=== PATIENT | female | born 1940 | race Caucasian/White ===

== ENCOUNTER → 2023-11-29 14:14 | Outpatient (REF) | payer OTHER, SELFPAY | LOC: RAD 14:14 | PROVIDERS: ATTENDING PHYSICIAN Registered Nurse Ambulatory Care | DX: N39.45 Continuous leakage (principal) | CPT/HCPCS: 76770 ==

== ENCOUNTER 2023-12-15 19:59 | Emergency (ER) | payer OTHER, SELFPAY ==
[2023-12-15 20:08] VITALS: BP 120/60
--- NOTE | 2023-12-15 22:30 | EDRN ---
This RN switched pts leg bag to the leg bag that carries, pt feels much more comfortable with this bag and demonstrated understanding of use. Pt given overnight 2,000ml bag for overnight if she needs. Pts daughter at bedside and understands fernandez
care as well. All questions answered. Pt appreciative for the education provided.
--- NOTE | 2023-12-15 22:51 | ED.GENMED ---
History of Present Illness
General
Chief Complaint: Catheter/Tube Problem
Source: patient and family
Exam Limitations: none
Time Seen by Provider: 12/15/23 22:08
Nursing documentation reviewed up to this point in time: agreed with
Travel History
Have you had any contact with someone who has COVID-19?: No
Do you have any symptoms of coronavirus? Fever > 100 degrees, chills, cough, shortness of breath, sore throat, loss of taste or smell, muscle aches, or headache?: No
History of Present Illness
History of Present Illness:
Patient states he had a fernandez catheter placed yesterday by urologist Ammon. Today her leg bag was leaking, Brought to ED by daughter for eval.
Past History
Past History
ED Past Medical History: Arrthythmia (Atrial fibrillation), Hypercholesterolemia, Seizures, Hypothyroidism, Psychiatric (Anxiety and depression), Other (Rheumatoid arthritis, Plaque psoriasis, osteoporosis, primary biliary cirrhosis diagnosed by
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
Leiden, restless leg syndrome)
ED Past Surgical History: Appendectomy, Brain (Craniotomy), Cholecystectomy, Gynecological (Oophorectomy), Orthopedic and Other (right eye laser surgery, cataract extraction 1999)
Social History
Tobacco: Non-smoker
Alcohol: None
Drug: None
Personal: Single
Living: alone
Employment: Retired
Family History
Family History: Other (Reviewed and Noncontributory)
Review of Systems
Review of Systems
Allergies reviewed?: Yes
All Other Systems: ROS reviewed and negative except as documented in HPI and ROS
Constitutional: Reports no symptoms
EENT: Reports no symptoms
Respiratory: Reports no symptoms
Cardiac: Reports no symptoms
ABD/GI: Reports no symptoms
: Reports other (leaking leg bag)
Musculoskeletal: Reports no symptoms
Skin: Reports no symptoms
Neurological: Reports no symptoms
Psychiatric: Reports no symptoms
Phy Exam
General Physical Exam
General Presentation: well appearing and no apparent distress
General age: appears stated age
General Skin: warm and dry
General Habitus: normal
Gastrointestinal Exam
Gastrointestinal Exam: other (Fernandez catheter intact. Leg bag changed and she was instructed in care by RN. No defect noted on original leg bag. )
Musculoskeletal Exam
Musculoskeletal Exam: full ROM
Skin Exam
Skin Exam: normal color, warm/dry and no rash
Psychiatric Exam
Psychiatric Exam: normal mood/affect
Course
Vital Signs
Initial and Last Documented VS:
Initial Vital Signs
Temp Pulse Resp BP Pulse Ox
98.0 F 88 17 120/60 98
12/15/23 20:08 12/15/23 20:08 12/15/23 20:08 12/15/23 20:08 12/15/23 20:08
Last Documented Vital Signs
Temp Pulse Resp BP Pulse Ox
98.0 F 88 17 120/60 98
12/15/23 20:08 12/15/23 20:08 12/15/23 20:08 12/15/23 20:08 12/15/23 20:08
*Critical Care Note
Total Time (30-74mins, 75-104mins- exclusive of procedures): Not Applicable
ED Attending Note
-
Portions of this chart may have been created with voice recognition software.� Occasional wrong word or��sound alike� substitutions may have occurred due to the inherent limitations of voice recognition software.
Discharge Plan
Departure
Patient Disposition: Home (Routine Discharge)
Date of Disposition: 12/15/23
Time of Disposition: 22:50
Patient with high blood pressure during this ER visit?: No
Condition: Good
Covid-19: Not Applicable
Discharge Problem:
Complication of Fernandez catheter
Instructions: How to Care for Your Fernandez Catheter
Prescriptions:
No Action
divalproex 500 MG tablet,delayed release (DR/EC)
500 mg PO BID
ursodiol 300 MG capsule
600 mg PO DAILY
levothyroxine 25 MCG tablet
25 mcg PO DAILY@0700
ursodiol 300 MG capsule
300 mg PO QPM
Centrum Silver 1 EACH tablet
1 ea PO DAILY
Lumigan 1 DROP drops
1 drp BOTH EYES HS
polyethylene glycol 3350 17 GRAMS powder in packet
17 grams PO DAILYPRN PRN (Reason: constipation)
metoprolol succinate 50 MG tablet extended release 24 hr
50 mg PO HS
lacosamide [Vimpat] 100 MG tablet
200 mg PO BID
Eliquis 5 MG tablet
5 mg PO BID Qty: 0 0RF
Rx Instructions:
RESUME WEDNESDAY 08/15
torsemide 10 mg Tablet
10 mg PO DAILY
docusate sodium 100 MG capsule
100 mg PO DAILY
gabapentin 300 MG capsule
300 mg PO HS
Enbrel 50 MG/ML syringe
50 mg SQ GASCA
Referrals:
Sherrie Chiu NP [Family Provider] - Follow up in 2-3 days
Interventions
Interventions:
*Risk Screen - Suicide Last Done: 12/15/23 20:08
*General Assessment Last Done: 12/15/23 20:08
*Neglect/Abuse Screening Last Done: 12/15/23 20:08
ED- Fall Risk Assessment Last Done: 12/15/23 22:25
*ED COVID-19 Vaccine History Last Done: 12/15/23 20:08
FS-Vwxiwq-Genctqisiz Assessment Last Done: 12/15/23 22:25
ED-Female Genitourinary Assessment Last Done: 12/15/23 22:25
[2023-12-15 23:00] VITALS: BP 118/75
== END 2023-12-15 23:08 | disposition home or self-care (01) ==
LOC: EMR 19:59
PROVIDERS: EMERGENCY PHYSICIAN Emergency Medicine; FAMILY PHYSICIAN Internal Medicine
DX: T83.9XXA Unspecified complication of genitourinary prosthetic device, implant and graft, initial encounter (principal); Z46.6 Encounter for fitting and adjustment of urinary device; I48.91 Unspecified atrial fibrillation; E78.00 Pure hypercholesterolemia, unspecified; G40.909 Epilepsy, unspecified, not intractable, without status epilepticus; E03.9 Hypothyroidism, unspecified; F41.8 Other specified anxiety disorders; M06.9 Rheumatoid arthritis, unspecified; L40.0 Psoriasis vulgaris; K74.3 Primary biliary cirrhosis; K58.9 Irritable bowel syndrome, unspecified; D68.51 Activated protein C resistance; G25.81 Restless legs syndrome; H40.9 Unspecified glaucoma; M81.0 Age-related osteoporosis without current pathological fracture; Z86.16 Personal history of COVID-19; Z90.49 Acquired absence of other specified parts of digestive tract; Z90.721 Acquired absence of ovaries, unilateral
CPT/HCPCS: 99282

== ENCOUNTER → 2023-12-21 11:17 | Outpatient (REF) | payer OTHER, SELFPAY ==
--- NOTE | 2023-12-21 13:29 | EEG.RPT ---
Electroencephalogram Report
Recording
Date of EE12/21/23
Type of EEG: Routine
Length of EEG recordin minutes
Done with Video Recording: Yes
Patient Status: Outpatient
Recording Conditions: Awake and Drowsy
Hyperventilation Performed: No
Photic Stimulation Performed: Yes
Report
GREATER THAN 1 HOUR EEG REPORT
GREATER THAN 1 HOUR EEG INTERPRETATION:
Mildly abnormal EEG for age in wakefulness through sleep due to mild diffuse bihemispheric slowing
CLINICAL CORRELATION:
This study was suggestive of mild breach artifact from the right temporal lobe in non-epileptiform form. Although normative values have not been established for a person of this advanced age, this study was minimally suggestive of diffuse cortical
dysfunction. No seizures were recorded.
Clinical correlation is advised.
METHODS:
A 21 channel digitized electroencephalogram (EEG) was performed at the bedside. The 10/20 international system of electrode placement was used with ECG and lateral/vertical eye movements recorded. Video was recorded. [employer] system quantitative EEG
analysis was performed.
QUALITY OF STUDY:
Fair-Poor; frequent obscuration with muscle artifact
ELECTROENCEPHALOGRAPHER IMPRESSION(S):
Background
Amplitude: Unremarkable
Anterior-Posterior Organization: Unremarkable
Maximum: Alpha
Asymmetry: None
Sleep
Drowsiness present
Photic Stimulation
Failed to activate the record
ECG
Normal sinus rhythm
Abnormal EEG Activity
Mild asymmetry with right temporal (T4) focal medium-high amplitude continuously
== END ==
LOC: RCS 11:17
PROVIDERS: ATTENDING PHYSICIAN Psychiatry & Neurology Neurology; FAMILY PHYSICIAN Internal Medicine
DX: G40.209 Localization-related (focal) (partial) symptomatic epilepsy and epileptic syndromes with complex partial seizures, not intractable, without status epilepticus (principal)
CPT/HCPCS: 95813

== ENCOUNTER 2023-12-23 15:30 | Emergency (ER) | payer OTHER, SELFPAY ==
[2023-12-23 15:33] VITALS: BP 142/72
--- NOTE | 2023-12-23 16:24 | ED.GENMED ---
History of Present Illness
General
Chief Complaint: Cough
Source: patient
Exam Limitations: none
Time Seen by Provider: 12/23/23 15:57
Nursing documentation reviewed up to this point in time: agreed with
Travel History
Have you had any contact with someone who has COVID-19?: Yes
Comment: patient + today
Do you have any symptoms of coronavirus? Fever > 100 degrees, chills, cough, shortness of breath, sore throat, loss of taste or smell, muscle aches, or headache?: Yes
Symptoms:: cough
History of Present Illness
History of Present Illness:
Patient is an 83-year-old female from assisted living presents with a cough for the past several days. She was tested at facility and was found to be COVID-positive. Her only complaint is cough. She denies any fevers denies any shortness of
breath. no other complaints.
Past History
Past History
ED Past Medical History: Arrthythmia (Atrial fibrillation), Hypercholesterolemia, Seizures, Hypothyroidism, Psychiatric (Anxiety and depression), Other (Rheumatoid arthritis, Plaque psoriasis, osteoporosis, primary biliary cirrhosis diagnosed by
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
Leiden, restless leg syndrome)
ED Past Surgical History: Appendectomy, Brain (Craniotomy), Cholecystectomy, Gynecological (Oophorectomy), Orthopedic and Other (right eye laser surgery, cataract extraction 1999)
Social History
Tobacco: Non-smoker
Alcohol: None
Drug: None
Personal: Single
Living: alone
Employment: Retired
Family History
Family History: Other (Reviewed and Noncontributory)
Review of Systems
Review of Systems
Allergies reviewed?: Yes
All Other Systems: ROS reviewed and negative except as documented in HPI and ROS
Constitutional: Denies fever, fatigue or chills
EENT: Reports no symptoms
Respiratory: Reports cough; Denies trouble breathing
ABD/GI: Reports no symptoms
: Reports no symptoms
Musculoskeletal: Reports no symptoms
Skin: Reports no symptoms
Neurological: Reports no symptoms
Psychiatric: Reports no symptoms
Phy Exam
General Physical Exam
General Presentation: no apparent distress
General age: appears stated age
General Skin: warm and dry
General Habitus: normal
General Mental: alert
General Hydration: appears well hydrated
Cardiovascular Exam
Cardiovascular Exam: regular rate/rhythm, no murmur and normal peripheral pulses
Pulmonary Exam
Pulmonary Exam: lungs clear and no respiratory distress
Neurological Exam
Neurological Exam: alert and oriented x3
Musculoskeletal Exam
Musculoskeletal Exam: full ROM
Skin Exam
Skin Exam: normal color and warm/dry
Psychiatric Exam
Psychiatric Exam: normal mood/affect
Course
Orders/Labs/Results
Orders:
Orders
12/23/23 16:31
Vital Signs- Treatment ONCE
Frequency: Once
12/23/23 17:45
Benzonatate [Tessalon Perles] 200 mg PO NOW STA
Vital Signs
Initial and Last Documented VS:
Initial Vital Signs
Temp Pulse Resp BP Pulse Ox
98.7 F 110 18 142/72 96
12/23/23 15:33 12/23/23 15:33 12/23/23 15:33 12/23/23 15:33 12/23/23 15:33
Last Documented Vital Signs
Temp Pulse Resp BP Pulse Ox
98.7 F 116 18 121/76 97
12/23/23 15:33 12/23/23 17:54 12/23/23 16:47 12/23/23 17:54 12/23/23 17:54
MDM/Problems Addressed
Differential Diagnosis Includes:
Not limited to viral syndrome/COVID
MDM/Problems Addressed:
Patient was found to be COVID-positive tested at skilled facility prior to arrival. Only complaint is cough, She is in no acute distress she is not hypoxic lungs are clear. She is well-appearing she has no other complaints other then cough. will
d/c with benzonate.
*Critical Care Note
Total Time (30-74mins, 75-104mins- exclusive of procedures): Not Applicable
ED Attending Note
-
Portions of this chart may have been created with voice recognition software.� Occasional wrong word or��sound alike� substitutions may have occurred due to the inherent limitations of voice recognition software.
Discharge Plan
Departure
Patient Disposition: Home (Routine Discharge)
Date of Disposition: 12/23/23
Time of Disposition: 17:34
Patient with high blood pressure during this ER visit?: No
Condition: Fair
Covid-19: Confirmed COVID-19
Discharge Problem:
COVID-19
Instructions: Cough, Adult (DC), COVID-19 (DC)
Prescriptions:
New
benzonatate 200 mg capsule
200 mg PO TID PRN (Reason: Cough) Qty: 10 0RF
No Action
divalproex 500 MG tablet,delayed release (DR/EC)
500 mg PO BID
ursodiol 300 MG capsule
600 mg PO DAILY
levothyroxine 25 MCG tablet
25 mcg PO DAILY@0700
ursodiol 300 MG capsule
300 mg PO QPM
Centrum Silver 1 EACH tablet
1 ea PO DAILY
Lumigan 1 DROP drops
1 drp BOTH EYES HS
polyethylene glycol 3350 17 GRAMS powder in packet
17 grams PO DAILYPRN PRN (Reason: constipation)
metoprolol succinate 50 MG tablet extended release 24 hr
50 mg PO HS
lacosamide [Vimpat] 100 MG tablet
200 mg PO BID
Eliquis 5 MG tablet
5 mg PO BID Qty: 0 0RF
Rx Instructions:
RESUME WEDNESDAY 08/15
torsemide 10 mg Tablet
10 mg PO DAILY
docusate sodium 100 MG capsule
100 mg PO DAILY
gabapentin 300 MG capsule
300 mg PO HS
Enbrel 50 MG/ML syringe
50 mg SQ GASCA
Referrals:
NONE,* [Active] -
Activity Restrictions/Additional Instructions:
Patient may take benzoate for cough. Stay well-hydrated. Patient looks well no complaints of shortness of breath here in the ER ,patient must be evaluated by family doctor in the next several days.
return if any worsening of symptoms
Interventions
Interventions:
*Risk Screen - Suicide Last Done: 12/23/23 15:35
*Neglect/Abuse Screening Last Done: 12/23/23 15:35
ED- Fall Risk Assessment Last Done: 12/23/23 16:48
*ED COVID-19 Vaccine History Last Done: 12/23/23 15:35
*Nursing Disposition Last Done: 12/23/23 18:44
ED- Pulmonary Assessment Last Done: 12/23/23 16:48
Discharge Date and Time
Discharge Date/Time: 12/23/23 18:45
[2023-12-23] MEDS: TESSALON PERLES 200 MG PO (17:48)
[2023-12-23 17:54] VITALS: BP 121/76
== END 2023-12-23 18:45 | disposition home or self-care (01) ==
LOC: EMR 15:30
PROVIDERS: EMERGENCY PHYSICIAN Emergency Medicine; FAMILY PHYSICIAN Internal Medicine
DX: U07.1 COVID-19 (principal); I48.91 Unspecified atrial fibrillation; E78.00 Pure hypercholesterolemia, unspecified; E03.9 Hypothyroidism, unspecified; M06.9 Rheumatoid arthritis, unspecified; F41.9 Anxiety disorder, unspecified; F32.A Depression, unspecified; M81.0 Age-related osteoporosis without current pathological fracture; Q07.00 Arnold-Chiari syndrome without spina bifida or hydrocephalus; H40.9 Unspecified glaucoma; M48.00 Spinal stenosis, site unspecified; R56.9 Unspecified convulsions; I50.9 Heart failure, unspecified; K74.60 Unspecified cirrhosis of liver; K58.9 Irritable bowel syndrome, unspecified; D68.51 Activated protein C resistance; G25.81 Restless legs syndrome; Z79.01 Long term (current) use of anticoagulants; Z90.49 Acquired absence of other specified parts of digestive tract; Z88.5 Allergy status to narcotic agent; Z88.8 Allergy status to other drugs, medicaments and biological substances
CPT/HCPCS: 99283

== ENCOUNTER 2024-06-04 20:42 | Emergency (ER) | payer OTHER, SELFPAY ==
[2024-06-04 20:45] VITALS: BP 126/62
--- NOTE | 2024-06-04 22:08 | ED.GENMED ---
History of Present Illness
<DWIGHT Cole (Lenka) - Last Filed: 06/04/24 22:35>
General
Chief Complaint: Catheter/Tube Problem
Source: patient
Exam Limitations: none
Time Seen by Provider: 06/04/24 22:07
Nursing documentation reviewed up to this point in time: agreed with
History of Present Illness
History of Present Illness:
Pt is an 83yo female with PMHx of urinary stress incontinence s/p fernandez catheter placed in 2022, primary biliary cirrhosis, IBS, hypothyroid, CHF, hypotension, CVA, seizures who presents to the ED with concerns over her chronic fernandez catheter
leaking x 3 hours. Pt states she was at the urology clinic earlier today for her monthly catheter exchange. She is unsure catheter size, unsure if there has been a recent change in catheter size. She denies any complications during exchange today.
During dinner she noted her left leg with the fernandez bag was wet, and believed she was leaking urine. Unsure how much time elapsed between exchange and notice of leakage. Her catheter was placed around 1 year ago (2022) for chronic stress
incontinence and she has had monthly changes without complication since. She denies burning or pain,redness, or pruritus in the genital region. Denies fevers, chills, abdominal pain, changes to bowel habits, N/V.
Past History
<DWIGHT Cole (Lenka) - Last Filed: 06/04/24 22:35>
Past History
ED Past Medical History: Arrthythmia (Atrial fibrillation), Hypercholesterolemia, Seizures, Hypothyroidism, Psychiatric (Anxiety and depression), Other (Rheumatoid arthritis, Plaque psoriasis, osteoporosis, primary biliary cirrhosis diagnosed by
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
Leiden, restless leg syndrome)
ED Past Surgical History: Appendectomy, Brain (Craniotomy), Cholecystectomy, Gynecological (Oophorectomy), Orthopedic and Other (right eye laser surgery, cataract extraction 1999)
Social History
Tobacco: Non-smoker
Alcohol: None
Drug: None
Personal: Single
Living: assisted living
Employment: Retired
Family History
Family History: Other (Reviewed and Noncontributory)
Phy Exam
<DWIGHT Cole (Lenka) - Last Filed: 06/04/24 22:35>
General Physical Exam
General Presentation: mild distress
General age: appears stated age
General Skin: warm and dry
General Habitus: elderly
General Mental: anxious
Pulmonary Exam
Pulmonary Exam: no respiratory distress
Gastrointestinal Exam
Gastrointestinal Exam: non tender, soft and non distended
Genitourinary Exam Female
Exam Female: other (NO lesions, redness, signs of irritation, swelling, displacement of catheter, or leakage of urine visualized. Pt with pull-ups, pad, and paper towel as barrier around fernandez, all are dry upon inspection despite being changed
1.5 hours ago)
Neurological Exam
Neurological Exam: alert and speech normal
Skin Exam
Skin Exam: normal color and warm/dry
Psychiatric Exam
Psychiatric Exam: agitated and anxious
Course
<DWIGHT Cole (Lenka) - Last Filed: 06/04/24 22:35>
Vital Signs
Initial and Last Documented VS:
Initial Vital Signs
Temp Pulse Resp BP Pulse Ox
98 F 98 22 126/62 98
06/04/24 20:45 06/04/24 20:45 06/04/24 20:45 06/04/24 20:45 06/04/24 20:45
Last Documented Vital Signs
Temp Pulse Resp BP Pulse Ox
98 F 98 22 126/62 98
06/04/24 20:45 06/04/24 20:45 06/04/24 20:45 06/04/24 20:45 06/04/24 20:45
<Marco Castillo DO - Last Filed: 06/04/24 23:01>
Vital Signs
Initial and Last Documented VS:
Initial Vital Signs
Temp Pulse Resp BP Pulse Ox
98 F 98 22 126/62 98
06/04/24 20:45 06/04/24 20:45 06/04/24 20:45 06/04/24 20:45 06/04/24 20:45
Last Documented Vital Signs
Temp Pulse Resp BP Pulse Ox
98 F 98 22 126/62 98
06/04/24 20:45 06/04/24 20:45 06/04/24 20:45 06/04/24 20:45 06/04/24 20:45
<DWIGHT Cole (Lenka) - Last Filed: 06/04/24 22:35>
MDM/Problems Addressed
Differential Diagnosis Includes:
83yo female with concerns over fernandez catheter leaking after exchange today. Catheter was exchanged earlier today per routine protocol, pt denies complications during exchange. No irritation or concerns when leaving the office. This evening she
noticed wetness on her leg and believed her catheter was leaking. She presents 1.5 hours after padding her pull-ups with pads and paper towels, all of which were completely dry. Upon physical exam, no evidence of urine leakage or catheter
displacement was visualized.
No indication to exchange catheter. Plan to discharge patient with current catheter in place.
<DWIGHT Cole (Lenka) - Last Filed: 06/04/24 22:35>
*Critical Care Note
Total Time (30-74mins, 75-104mins- exclusive of procedures): Not Applicable
ED Attending Note
<DWIGHT Cole (Lenka) - Last Filed: 06/04/24 22:35>
-
Portions of this chart may have been created with voice recognition software.� Occasional wrong word or��sound alike� substitutions may have occurred due to the inherent limitations of voice recognition software.
<Marco Castillo, DO - Last Filed: 06/04/24 23:01>
ED Attending Note
Patient seen and examined by attending physician: Yes
I performed the substantive portion of visit, reviewed & personally made and approve the management plan that is documented in note by myself or GRACE.: Yes
ED Attending Note:
Pleasant 83-year-old female presents with the possibility of Fernandez catheter leaking. For the last 3 hours she states that she felt wetness around her Fernandez catheter. She was at urology clinic earlier today and had her catheter changed routinely.
Upon arrival, nursing inspected the entire catheter and could not find any evidence of a leak. It is flowing normally. She was observed in the emergency department and still no leak. Patient was seen in conjunction with the PA student. I have
reviewed and agree with her history and treatment plan. On my physical exam Fernandez catheter is in place draining normal colored urine. There is no evidence of leak. Patient to be discharged home
Discharge Plan
Departure
Patient Disposition: Home (Routine Discharge)
Date of Disposition: 06/04/24
Time of Disposition: 23:00
Patient with high blood pressure during this ER visit?: Yes
Condition: Good
Discharge Problem:
Fernandez catheter check, Fernandez catheter present
Prescriptions:
No Action
divalproex 500 MG tablet,delayed release (DR/EC)
500 mg PO BID
ursodiol 300 MG capsule
600 mg PO DAILY
levothyroxine 25 MCG tablet
25 mcg PO DAILY@0700
ursodiol 300 MG capsule
300 mg PO QPM
Centrum Silver 1 EACH tablet
1 ea PO DAILY
Lumigan 1 DROP drops
1 drp BOTH EYES HS
polyethylene glycol 3350 17 GRAMS powder in packet
17 grams PO DAILYPRN PRN (Reason: constipation)
metoprolol succinate 50 MG tablet extended release 24 hr
50 mg PO HS
lacosamide [Vimpat] 100 MG tablet
200 mg PO BID
Eliquis 5 MG tablet
5 mg PO BID Qty: 0 0RF
Rx Instructions:
RESUME WEDNESDAY 08/15
torsemide 10 mg Tablet
10 mg PO DAILY
docusate sodium 100 MG capsule
100 mg PO DAILY
gabapentin 300 MG capsule
300 mg PO HS
Enbrel 50 MG/ML syringe
50 mg SQ GASCA
benzonatate 200 mg capsule
200 mg PO TID PRN (Reason: Cough) Qty: 10 0RF
Referrals:
Sherrie Chiu NP [Family Provider] -
Activity Restrictions/Additional Instructions:
It was a pleasure meeting you and taking part in your care. We hope for your continued healing and wellness.
Please read discharge instructions in their entirety. However, they are for general education and may not describe your exact diagnosis at discharge. Information on your ER visit and medical conditions were discussed with you along with appropriate
follow up information...
If indicated, please take your medications as instructed and indicated on discharge paperwork.
Please schedule a follow up appointment as directed. Call to schedule an appointment
Please return to the emergency department with ANY change in, persisting, or worsening of symptoms. If any of your symptoms do not improve, or persist, or become more severe within 6-12 hours, please return to the emergency department for further
care.
Please return to the emergency department if you develop a headache, neck pain/stiffness, fever greater than 100.4F, chest pain, shortness of breath, persistent nausea, vomiting, slurred speech, difficulty walking, numbness/tingling, weakness, signs
of infection or any other symptoms that are worrisome to you.
If you have any questions or concerns please do not hesitate to call the Hospital at or E-mail me directly at [email or web address]
Interventions
Interventions:
*Risk Screen - Suicide Last Done: 06/04/24 20:45
*General Assessment Last Done: 06/04/24 22:12
*Neglect/Abuse Screening Last Done: 06/04/24 20:45
ED- Fall Risk Assessment Last Done: 06/04/24 22:12
*ED COVID-19 Vaccine History Last Done: 06/04/24 22:12
JX-Kallfc-Klgxelwjso Assessment Last Done: 06/04/24 22:12
ED-Female Genitourinary Assessment Last Done: 06/04/24 22:12
Discharge Date and Time
Print Language: BELARUSIAN
[2024-06-04 23:35] VITALS: BP 113/71
== END 2024-06-04 23:35 | disposition home or self-care (01) ==
LOC: EMR 20:42
PROVIDERS: EMERGENCY PHYSICIAN Student in an Organized Health Care Education/Training Program; FAMILY PHYSICIAN Internal Medicine
DX: Z46.6 Encounter for fitting and adjustment of urinary device (principal)
CPT/HCPCS: 99281

== ENCOUNTER → 2024-06-11 09:20 | Outpatient (REF) | payer OTHER, SELFPAY | LOC: RCS 09:20 | PROVIDERS: ATTENDING PHYSICIAN Internal Medicine Cardiovascular Disease; FAMILY PHYSICIAN Internal Medicine | DX: I50.32 Chronic diastolic (congestive) heart failure (principal); I35.1 Nonrheumatic aortic (valve) insufficiency | CPT/HCPCS: 93306 ==

== ENCOUNTER 2024-10-30 11:51 | Emergency (ER) | payer OTHER, SELFPAY ==
[2024-10-30 11:55] VITALS: BP 127/71
--- NOTE | 2024-10-30 13:35 | ED.GENMED ---
Addendum entered and electronically signed by Ethan Lara PA-C 11/02/24 07:37:
On cefdinir, appropriate per C&S
Original Note:
History of Present Illness
General
Chief Complaint: Catheter/Tube Problem
Source: patient
Exam Limitations: none
Time Seen by Provider: 10/30/24 13:19
History of Present Illness
History of Present Illness:
84-year-old female with indwelling Fernandez catheter presents stating that she was leaking around the catheter. She was soaking her depends. She thinks her catheter is clogged. It was last replaced a week ago at a different facility. No fevers. No
pain. No other complaints
Past History
Past History
ED Past Medical History: Arrthythmia (Atrial fibrillation), Hypercholesterolemia, Seizures, Hypothyroidism, Psychiatric (Anxiety and depression), Other (Rheumatoid arthritis, Plaque psoriasis, osteoporosis, primary biliary cirrhosis diagnosed by
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
Leiden, restless leg syndrome)
ED Past Surgical History: Appendectomy, Brain (Craniotomy), Cholecystectomy, Gynecological (Oophorectomy), Orthopedic and Other (right eye laser surgery, cataract extraction 1999)
Social History
Tobacco: Non-smoker
Alcohol: None
Drug: None
Personal: Single
Living: assisted living
Employment: Retired
Family History
Family History: Other (Reviewed and Noncontributory)
Phy Exam
Physical Exam
Physical Exam:
General: Well-appearing female no acute respiratory distress
HEENT normocephalic atraumatic
Abdomen is soft nontender nondistended
Extremities: No cyanosis
Course
Orders/Labs/Results
Orders:
Orders
10/30/24 14:14
Urinalysis Reflex To Culture Urgent
Date Specimen was Collected: 10/30/24
Time Specimen was Collected: 14:02
Urine Microscopic Reflex Cult Urgent
Urine Culture Urgent
MILLY Source: U
Specimen Description:
Date Specimen was Collected: 10/30/24
Time Specimen was Collected: 14:02
Abnormal Lab Results
10/30/24
14:14
Urine Ketones 1+ A
(Negative)
Ur Occult Blood Reflex 4+ A
(Negative)
Leukocyte Esterase Rfl 1+ A
(Negative)
Urine RBC 30-40 A /HPF
(0-2)
Urine WBC (Reflex) 16-20 A /HPF
(0-5)
Urine Bacteria (Reflex) Few A
(Negative)
Urine Albumin (Reflex) 1+ A
(Neg - Trace)
Vital Signs
Initial and Last Documented VS:
Initial Vital Signs
Temp Pulse Resp BP Pulse Ox
98.1 F 105 18 127/71 97
10/30/24 11:55 10/30/24 11:55 10/30/24 11:55 10/30/24 11:55 10/30/24 11:55
Last Documented Vital Signs
Temp Pulse Resp BP Pulse Ox
98.1 F 94 20 111/71 98
10/30/24 11:55 10/30/24 16:06 10/30/24 16:06 10/30/24 16:06 10/30/24 16:06
MDM/Problems Addressed
Differential Diagnosis Includes:
Potentially blocked or clogged Fernandez catheter. Patient states it was leaking outside around the catheter. Nursing staff to replace catheter. No fevers here.
*Critical Care Note
Total Time (30-74mins, 75-104mins- exclusive of procedures): Not Applicable
Update Note
Update Note:
Urinalysis concerning for possible UTI. Will cover given the indwelling catheter. Prescription for Omnicef was sent to the pharmacy. She is stable for discharge otherwise
ED Attending Note
-
Portions of this chart may have been created with voice recognition software.� Occasional wrong word or��sound alike� substitutions may have occurred due to the inherent limitations of voice recognition software.
Discharge Plan
Departure
Patient Disposition: Home (Routine Discharge)
Date of Disposition: 10/30/24
Time of Disposition: 16:40
Patient with high blood pressure during this ER visit?: No
Discharge Problem:
fernandez catheter dysfunction
Instructions: How to Care for Your Fernandez Catheter
Prescriptions:
New
cefdinir 300 mg capsule
300 mg PO BID Qty: 14 0RF
No Action
divalproex 500 MG tablet,delayed release (DR/EC)
500 mg PO BID
ursodiol 300 MG capsule
600 mg PO DAILY
levothyroxine 25 MCG tablet
25 mcg PO DAILY@0700
ursodiol 300 MG capsule
300 mg PO QPM
Centrum Silver 1 EACH tablet
1 ea PO DAILY
Lumigan 1 DROP drops
1 drp BOTH EYES HS
polyethylene glycol 3350 17 GRAMS powder in packet
17 grams PO DAILYPRN PRN (Reason: constipation)
metoprolol succinate 50 MG tablet extended release 24 hr
50 mg PO HS
lacosamide [Vimpat] 100 MG tablet
200 mg PO BID
Eliquis 5 MG tablet
5 mg PO BID Qty: 0 0RF
Rx Instructions:
RESUME WEDNESDAY 08/15
torsemide 10 mg Tablet
10 mg PO DAILY
docusate sodium 100 MG capsule
100 mg PO DAILY
gabapentin 300 MG capsule
300 mg PO HS
Enbrel 50 MG/ML syringe
50 mg SQ GASCA
benzonatate 200 mg capsule
200 mg PO TID PRN (Reason: Cough) Qty: 10 0RF
Referrals:
Sherrie Chiu PICK UP [Family Provider] -
Activity Restrictions/Additional Instructions:
Take antibiotics as directed. Return here if needed otherwise follow-up with your doctor
Interventions
Interventions:
*Risk Screen - Suicide Last Done: 10/30/24 11:55
*General Assessment Last Done: 10/30/24 11:55
*Neglect/Abuse Screening Last Done: 10/30/24 11:55
*ED COVID-19 Vaccine History Last Done: 10/30/24 11:55
GT-Cigqhk-Vbkrxmjfin Assessment Last Done: 10/30/24 13:51
ED-Female Genitourinary Assessment Last Done: 10/30/24 13:51
Discharge Date and Time
Print Language: PERSIAN
[2024-10-30 14:26] LABS: Urine Albumin 1+ (Neg - Trace); Urine Bilirubin Negative (Negative); Urine Character Clear (Clear); Urine Color Yellow; Urine Glucose Negative (Negative); Urine Ketone 1+ (Negative); Urine Leukocyte 1+ (Negative); Urine Nitrite Negative (Negative); Urine Occult Blood 4+ (Negative); Urine Urobilinogen Negative (Neg - 1+)
[2024-10-30 15:30] LABS: Urine Bacteria Few (Negative); Urine Red Blood Cell 30-40 /HPF (0-2); Urine White Cell 16-20 /HPF (0-5)
[2024-10-30 16:06] VITALS: BP 111/71
== END 2024-10-30 17:20 | disposition home or self-care (01) ==
LOC: EMR 11:51
PROVIDERS: Physician Assistant; EMERGENCY PHYSICIAN Emergency Medicine; FAMILY PHYSICIAN Internal Medicine
DX: T83.091A Other mechanical complication of indwelling urethral catheter, initial encounter (principal); X58.XXXA Exposure to other specified factors, initial encounter; E03.9 Hypothyroidism, unspecified; E78.00 Pure hypercholesterolemia, unspecified; I48.91 Unspecified atrial fibrillation; M06.9 Rheumatoid arthritis, unspecified; Z90.49 Acquired absence of other specified parts of digestive tract; Z90.721 Acquired absence of ovaries, unilateral
CPT/HCPCS: 99283; 51702; 81003; 81015; 87077; 87086; 87186

== ENCOUNTER 2024-11-23 13:36 | Emergency (ER) | payer OTHER, SELFPAY ==
[2024-11-23 13:42] VITALS: BP 144/83
--- NOTE | 2024-11-23 15:21 | ED.GENMED ---
History of Present Illness
General
Chief Complaint: Catheter/Tube Problem
Source: patient
Exam Limitations: none
Time Seen by Provider: 11/23/24 15:09
Nursing documentation reviewed up to this point in time: agreed with
History of Present Illness
History of Present Illness:
Patient to ED with complaint of bloody urine. States she 'didnt feel right' yesterday but could not be more specific. Today bleeding became wore today. Denies fevers but feels chllled. No n/v/d. Fernandez catheter initiated 1 year ago. Last fernandez
change was 2 weeks ago. Brought self to ED for eval
Past History
Past History
ED Past Medical History: Arrthythmia (Atrial fibrillation), Hypercholesterolemia, Seizures, Hypothyroidism, Psychiatric (Anxiety and depression), Other (Rheumatoid arthritis, Plaque psoriasis, osteoporosis, primary biliary cirrhosis diagnosed by
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
Leiden, restless leg syndrome)
ED Past Surgical History: Appendectomy, Brain (Craniotomy), Cholecystectomy, Gynecological (Oophorectomy), Orthopedic and Other (right eye laser surgery, cataract extraction 1999)
Social History
Tobacco: Non-smoker
Alcohol: None
Drug: None
Personal: Single
Living: assisted living
Employment: Retired
Family History
Family History: Other (Reviewed and Noncontributory)
Review of Systems
Review of Systems
Allergies reviewed?: Yes
All Other Systems: ROS reviewed and negative except as documented in HPI and ROS
Constitutional: Reports chills
EENT: Reports no symptoms
Respiratory: Reports no symptoms
Cardiac: Reports no symptoms
ABD/GI: Reports no symptoms
: Reports bleeding (blood in urine)
Musculoskeletal: Reports no symptoms
Skin: Reports no symptoms
Neurological: Reports no symptoms
Psychiatric: Reports no symptoms
Phy Exam
General Physical Exam
General Presentation: well appearing and no apparent distress
General age: appears stated age
General Skin: warm and dry
General Habitus: normal
General Mental: alert
General Hydration: appears well hydrated
Gastrointestinal Exam
Gastrointestinal Exam: non tender, soft and no cva tenderness
Musculoskeletal Exam
Musculoskeletal Exam: full ROM and neuro vasc intact
Skin Exam
Skin Exam: normal color, warm/dry and no rash
Psychiatric Exam
Psychiatric Exam: normal mood/affect
Course
Orders/Labs/Results
Orders:
Orders
11/23/24 15:46
Complete Blood Count/With Diff Urgent
Comprehensive Metabolic Panel Urgent
Lactic Acid Urgent
Urinalysis Reflex To Culture Urgent
Date Specimen was Collected: 11/23/24
Time Specimen was Collected: 15:33
Urine Microscopic Reflex Cult Urgent
Urine Culture Urgent
MILLY Source: U
Specimen Description:
Date Specimen was Collected: 11/23/24
Time Specimen was Collected: 15:33
11/23/24 16:20
Cefdinir [Omnicef] 300 mg PO NOW STA
Abnormal Lab Results
11/23/24
15:46
RBC 4.11 L 10^6/uL
(4.20-5.40)
MCH 32.4 H pg
(27.0-31.0)
MCHC 32.9 L g/dL
(33.0-37.0)
Absolute Monos (auto) 0.7 H 10^3/uL
(0.1-0.6)
Monocytes % 13.4 H %
(1.7-9.3)
Chloride 97 L mmol/L
(98-107)
Carbon Dioxide 32 H mmol/L
(22-30)
BUN 27 H mg/dl
(7-17)
Glucose 108 H mg/dl
(70-99)
Urine Ketones 1+ A
(Negative)
Ur Occult Blood Reflex 4+ A
(Negative)
Urine Nitrite (Reflex) Positive A
(Negative)
Leukocyte Esterase Rfl 2+ A
(Negative)
Urine RBC 70-80 A /HPF
(0-2)
Urine WBC (Reflex) 80-90 A /HPF
(0-5)
Urine Bacteria (Reflex) Moderate A
(Negative)
Urine Albumin (Reflex) 1+ A
(Neg - Trace)
11/23/24 15:46
11/23/24 15:46
Vital Signs
Initial and Last Documented VS:
Initial Vital Signs
Temp Pulse Resp BP Pulse Ox
98.4 F 99 16 144/83 98
11/23/24 13:42 11/23/24 13:42 11/23/24 13:42 11/23/24 13:42 11/23/24 13:42
Last Documented Vital Signs
Temp Pulse Resp BP Pulse Ox
97.2 F 91 20 106/91 99
11/23/24 15:41 11/23/24 15:41 11/23/24 15:41 11/23/24 15:41 11/23/24 15:41
*Critical Care Note
Total Time (30-74mins, 75-104mins- exclusive of procedures): Not Applicable
Update Note
Update Note:
Patient to ED for eval of blood in fernandez bag. Afebrile. NO abdominnal or back pain. Labs reviewed. WBC normal. UA confirms UTI. Placed on Duricef 300mg bid. Ist dose given in ED. She is disharged rochelle. Given instructions on s/s to return to
ED and she is agreeable to plan.
ED Attending Note
-
Portions of this chart may have been created with voice recognition software.� Occasional wrong word or��sound alike� substitutions may have occurred due to the inherent limitations of voice recognition software.
Discharge Plan
Departure
Patient Disposition: Home (Routine Discharge)
Date of Disposition: 11/23/24
Time of Disposition: 16:21
Patient with high blood pressure during this ER visit?: No
Condition: Good
Covid-19: Not Applicable
Discharge Problem:
Acute UTI
Instructions: Urinary tract infections in adults, How to Care for Your Fernandez Catheter
Prescriptions:
New
cefdinir 300 mg capsule
300 mg PO BID 7 Days Qty: 14 0RF
No Action
divalproex 500 MG tablet,delayed release (DR/EC)
500 mg PO BID
ursodiol 300 MG capsule
600 mg PO DAILY
levothyroxine 25 MCG tablet
25 mcg PO DAILY@0700
ursodiol 300 MG capsule
300 mg PO QPM
Centrum Silver 1 EACH tablet
1 ea PO DAILY
Lumigan 1 DROP drops
1 drp BOTH EYES HS
polyethylene glycol 3350 17 GRAMS powder in packet
17 grams PO DAILYPRN PRN (Reason: constipation)
metoprolol succinate 50 MG tablet extended release 24 hr
50 mg PO HS
lacosamide [Vimpat] 100 MG tablet
200 mg PO BID
Eliquis 5 MG tablet
5 mg PO BID Qty: 0 0RF
Rx Instructions:
RESUME WEDNESDAY 08/15
torsemide 10 mg Tablet
10 mg PO DAILY
docusate sodium 100 MG capsule
100 mg PO DAILY
gabapentin 300 MG capsule
300 mg PO HS
Enbrel 50 MG/ML syringe
50 mg SQ GASCA
benzonatate 200 mg capsule
200 mg PO TID PRN (Reason: Cough) Qty: 10 0RF
cefdinir 300 mg capsule
300 mg PO BID Qty: 14 0RF
Referrals:
Sherrie Chiu INTERNIST MEDICAL DOCTOR MD [Family Provider] - Follow up in 2-3 days
Activity Restrictions/Additional Instructions:
Return to the emergency department immediately for fever/chills, abdominal pain, back pain, vomiting, or for any further concers.
Interventions
Interventions:
*Risk Screen - Suicide Last Done: 11/23/24 13:44
*General Assessment Last Done: 11/23/24 15:41
*Neglect/Abuse Screening Last Done: 11/23/24 13:44
ED- Fall Risk Assessment Last Done: 11/23/24 15:41
*ED COVID-19 Vaccine History Last Done: 11/23/24 15:41
PU-Ukbmmn-Prbcehhcbg Assessment Last Done: 11/23/24 15:41
ED-Female Genitourinary Assessment Last Done: 11/23/24 15:41
Discharge Date and Time
Print Language: ICELANDIC
[2024-11-23 15:36] VITALS: BP 106/91
[2024-11-23 15:41] VITALS: BP 106/91; BMI 28.6
[2024-11-23 15:52] LABS: % Basophils 0.6 % (0-2); % Eosinophils 1.2 % (0-6); % Immature Granulocytes 0.2 % (0-0.5); % Lymphocytes 25.4 % (20.5-51.1); % Monocytes 13.4 % (1.7-9.3); % Neutrophils 59.2 % (42.2-75.2); Absolute Eosinophils 0.1 10^3/uL (0-0.7); Absolute Lymphocytes 1.3 10^3/uL (1.2-3.4); Absolute Monocytes 0.7 10^3/uL (0.1-0.6); Hematocrit 40.4 % (37.0-47.0); Hemoglobin 13.3 g/dL (12.0-16.0); Mean Corp Hgb Conc. 32.9 g/dL (33.0-37.0); Mean Corpuscular Hgb 32.4 pg (27.0-31.0); Mean Corpuscular Volume 98.3 fL (81.0-99.0); Mean Platelet Volume 9.6 fL (7.4-10.4); Nucleated Red Blood Cells % 0 %; Platelet Count 221 10^3/uL (130-400); Red Blood Cell Count 4.11 10^6/uL (4.20-5.40); Red Cell Dist. Width 12.9 % (11.5-14.5)
[2024-11-23 16:00] VITALS: BP 115/51
[2024-11-23 16:09] LABS: ALT (SGPT) 23 U/L (0-35); AST (SGOT) 33 U/L (14-36); Albumin 4.4 g/dl (3.5-5.0); Alkaline Phosphatase 91 U/L (38-126); Blood Urea Nitrogen 27 mg/dl (7-17); Calcium 9.8 mg/dl (8.4-10.2); Carbon Dioxide 32 mmol/L (22-30); Chloride 97 mmol/L (98-107); Estimated Creatinine Clearance 66 ml/min; Glucose 108 mg/dl (70-99); Potassium 4.4 mmol/L (3.5-5.1); Sodium 136 mmol/L (135-145); Total Bilirubin 0.4 mg/dl (0.2-1.3); Total Protein 7.8 g/dl (6.3-8.2); eGFR > 60.00
[2024-11-23 16:10] LABS: Urine Albumin 1+ (Neg - Trace); Urine Bilirubin Negative (Negative); Urine Character Very Cloudy (Clear); Urine Color Brown; Urine Glucose Negative (Negative); Urine Ketone 1+ (Negative); Urine Leukocyte 2+ (Negative); Urine Nitrite Positive (Negative); Urine Occult Blood 4+ (Negative); Urine Specific Gravity 1.015 (<1.030); Urine Urobilinogen 1+ (Neg - 1+)
[2024-11-23 16:11] LABS: Urine Red Blood Cell 70-80 /HPF (0-2); Urine Squamous Cell 0-2 /LPF (Few)
[2024-11-23 16:12] LABS: Urine Bacteria Moderate (Negative); Urine White Cell 80-90 /HPF (0-5)
--- NOTE | 2024-11-23 16:26 | EDRN ---
Yvonne Rai ECHO TECHNOLOGIST currently at the pts bedside
[2024-11-23] MEDS: OMNICEF 300 MG PO (16:42)
== END 2024-11-23 17:14 | disposition home or self-care (01) ==
LOC: EMR 13:36
PROVIDERS: Nurse Practitioner; EMERGENCY PHYSICIAN Emergency Medicine; FAMILY PHYSICIAN Internal Medicine
DX: N39.0 Urinary tract infection, site not specified (principal); R31.9 Hematuria, unspecified; E03.9 Hypothyroidism, unspecified; E78.00 Pure hypercholesterolemia, unspecified; I48.91 Unspecified atrial fibrillation; M06.9 Rheumatoid arthritis, unspecified; Z90.49 Acquired absence of other specified parts of digestive tract; Z90.721 Acquired absence of ovaries, unilateral; Z96.0 Presence of urogenital implants
CPT/HCPCS: 99283; 80053; 81003; 81015; 83605; 85025; 87086

== ENCOUNTER 2024-12-22 10:51 | Emergency (ER) | payer OTHER, SELFPAY ==
[2024-12-22 10:58] VITALS: BP 137/67
[2024-12-22 11:39] VITALS: BMI 28.8
[2024-12-22 11:42] VITALS: BP 104/59
[2024-12-22] MEDS: NSS 500 IV (11:43)
--- NOTE | 2024-12-22 11:43 | ED.GENMED ---
History of Present Illness
General
Chief Complaint: Change in Mental Status
Source: patient and family (Daughter)
Exam Limitations: none
Time Seen by Provider: 12/22/24 11:17
History of Present Illness
History of Present Illness:
84-year-old female brought in by her daughter. The visiting nurse or nurses aide felt that she had taken all of her medications for the day this morning. Seems slightly more confused. Patient's only complaint is ongoing stool issues which is
well-known. Daughter was called. States she has had slight confusion issues intermittently in the past and this is not new. Patient denies any other acute complaint. She lives independently.
Past History
Past History
ED Past Medical History: Arrthythmia (Atrial fibrillation), Hypercholesterolemia, Seizures, Hypothyroidism, Psychiatric (Anxiety and depression), Other (Rheumatoid arthritis, Plaque psoriasis, osteoporosis, primary biliary cirrhosis diagnosed by
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
Leiden, restless leg syndrome)
ED Past Surgical History: Appendectomy, Brain (Craniotomy), Cholecystectomy, Gynecological (Oophorectomy), Orthopedic and Other (right eye laser surgery, cataract extraction 1999)
Social History
Tobacco: Non-smoker
Alcohol: None
Drug: None
Personal: Single
Living: assisted living
Employment: Retired
Family History
Family History: Other (Reviewed and Noncontributory)
Phy Exam
Physical Exam
Physical Exam:
GENERAL: Alert and oriented x 2 in no apparent distress
EYE: Orbits normal.
NECK: Supple, no significant adenopathy.
ENT: Pharynx without erythema
CARDIAC: Regular rate and rhythm without any obvious murmurs.
LUNGS: Clear breath sounds,normal
ABDOMEN: Soft, without focal tenderness or distention
NEUROLOGICAL: Alert and oriented , grossly non-focal. Ambulated with walker well. Cranial nerves II through XII intact.
SKIN: Warm and dry, no rash or lesion, no discoloration, skin intact.
MUSCULOSKELETAL: No edema,no deformity.Good color
PSYCH: Normal and appropriate interaction.
Course
Orders/Labs/Results
Orders:
Orders
12/22/24 11:29
CT Head W/o Iv Contrast Urgent
Comment:
Reason For Exam: Increased confusion. Anticoagulated
IV Insert/Care/Rem.- Treatment PRN
0.9% Sodium Chloride 500 ml [Nss] 500 ml IV BOLUS
12/22/24 11:39
Case Management Consult ONCE
Case Management Consult: Discharge Planning
12/22/24 11:44
Basic Metabolic Panel Urgent
Complete Blood Count/With Diff Urgent
Urinalysis Reflex To Culture Urgent
Date Specimen was Collected: 12/22/24
Time Specimen was Collected: 11:41
Urine Microscopic Reflex Cult Urgent
Urine Culture Urgent
MILLY Source: U
Specimen Description:
Date Specimen was Collected: 12/22/24
Time Specimen was Collected: 11:41
Abnormal Lab Results
12/22/24
11:44
RBC 4.03 L 10^6/uL
(4.20-5.40)
MCV 99.5 H fL
(81.0-99.0)
MCH 32.3 H pg
(27.0-31.0)
MCHC 32.4 L g/dL
(33.0-37.0)
Absolute Monos (auto) 0.9 H 10^3/uL
(0.1-0.6)
Immature Gran % 0.6 H %
(0-0.5)
Monocytes % 14.4 H %
(1.7-9.3)
Chloride 95 L mmol/L
(98-107)
Carbon Dioxide 32 H mmol/L
(22-30)
BUN 18 H mg/dl
(7-17)
Ur Occult Blood Reflex 1+ A
(Negative)
Urine Nitrite (Reflex) Positive A
(Negative)
Leukocyte Esterase Rfl 3+ A
(Negative)
Urine WBC (Reflex) 26-30 A /HPF
(0-5)
Urine Bacteria (Reflex) Moderate A
(Negative)
Urine Albumin (Reflex) 1+ A
(Neg - Trace)
12/22/24 11:44
12/22/24 11:44
Vital Signs
Initial and Last Documented VS:
Initial Vital Signs
Temp Pulse Resp BP Pulse Ox
97.9 F 93 18 137/67 99
12/22/24 10:58 12/22/24 10:58 12/22/24 10:58 12/22/24 10:58 12/22/24 10:58
Last Documented Vital Signs
Temp Pulse Resp BP Pulse Ox
97.9 F 93 20 117/54 95
12/22/24 10:58 12/22/24 14:15 12/22/24 14:15 12/22/24 14:00 12/22/24 13:45
MDM/Problems Addressed
Differential Diagnosis Includes:
Patient is nontoxic in no distress. Benign neurologic exam. Gait normal with walker. Indwelling Auguste catheter. Abdomen is nontender. Regular rate and rhythm. Discussed with daughter. This intermittent confusion issues is not new. Question
of course is whether she can remain independent. Will have case management involvement. Check labs and a CT scan. Urine of course will be positive.
*Pulse Oximetry
Patient hypoxic: no
*Critical Care Note
Total Time (30-74mins, 75-104mins- exclusive of procedures): Not Applicable
Data Reviewed
Review of Other/Old Records Reveals: Labs, Records and Testing
Patient Management
Social determinants of health affecting care: Living situation (Lives alone independently. Some intermittent confusion issues in the past)
Update Note
Update Note:
Patient's workup is unremarkable. Urinalysis of course is positive but she has no fever no white count and not describing acute infectious symptoms. Head CT is stable. Labs are stable. Biggest issue was her living independently. Discussed at
length with the patient and with the daughter. Daughter is comfortable having her at home. They are aware there is remotely some risk to being home given some mild dementia but the alternatives of being placed in a facility with higher level of
care is not appealing to them at this time. She has done nothing that is admitted imminently danger to herself and nothing that danger to others.
Daughter picked the patient up. Did well with her walker. Ambulated well. Nontoxic. Discharged to follow-up. I do not feel urinalysis warrants treating. She has no fever white count etc.
ED Attending Note
-
Portions of this chart may have been created with voice recognition software.� Occasional wrong word or��sound alike� substitutions may have occurred due to the inherent limitations of voice recognition software.
Discharge Plan
Departure
Patient Disposition: Home (Routine Discharge)
Date of Disposition: 12/22/24
Time of Disposition: 15:05
Patient with high blood pressure during this ER visit?: Yes
Discharge Problem:
Episodic confusion
Instructions: Altered Mental Status (DC), BLOOD PRESSURE
Prescriptions:
No Action
divalproex 500 MG tablet,delayed release (DR/EC)
500 mg PO BID
ursodiol 300 MG capsule
600 mg PO DAILY
levothyroxine 25 MCG tablet
25 mcg PO DAILY@0700
ursodiol 300 MG capsule
300 mg PO QPM
Centrum Silver 1 EACH tablet
1 ea PO DAILY
Lumigan 1 DROP drops
1 drp BOTH EYES HS
polyethylene glycol 3350 17 GRAMS powder in packet
17 grams PO DAILYPRN PRN (Reason: constipation)
metoprolol succinate 50 MG tablet extended release 24 hr
50 mg PO HS
lacosamide [Vimpat] 100 MG tablet
200 mg PO BID
Eliquis 5 MG tablet
5 mg PO BID Qty: 0 0RF
Rx Instructions:
RESUME WEDNESDAY 08/15
torsemide 10 mg Tablet
10 mg PO DAILY
docusate sodium 100 MG capsule
100 mg PO DAILY
gabapentin 300 MG capsule
300 mg PO HS
Enbrel 50 MG/ML syringe
50 mg SQ GASCA
benzonatate 200 mg capsule
200 mg PO TID PRN (Reason: Cough) Qty: 10 0RF
cefdinir 300 mg capsule
300 mg PO BID Qty: 14 0RF
cefdinir 300 mg capsule
300 mg PO BID 7 Days Qty: 14 0RF
Referrals:
Sherrie Chiu NP [Family Provider] - Follow up in 2-3 days
Interventions
Interventions:
*Risk Screen - Suicide Last Done: 12/22/24 10:58
*General Assessment Last Done: 12/22/24 11:39
*Neglect/Abuse Screening Last Done: 12/22/24 10:58
ED- Fall Risk Assessment Last Done: 12/22/24 12:05
*ED COVID-19 Vaccine History Last Done: 12/22/24 11:39
*Nursing Disposition Last Done: 12/22/24 16:12
ED- Pulmonary Assessment Last Done: 12/22/24 12:05
ED- Neurological Assessment Last Done: 12/22/24 12:05
ED- Cardiac Assessment Last Done: 12/22/24 12:05
ED Swallowing Screen Last Done: 12/22/24 12:05
Discharge Date and Time
Discharge Date/Time: 12/22/24 16:12
Print Language: HONDURAN
[2024-12-22 11:51] LABS: Urine Albumin 1+ (Neg - Trace); Urine Bilirubin Negative (Negative); Urine Character Clear (Clear); Urine Color Yellow; Urine Glucose Negative (Negative); Urine Ketone Negative (Negative); Urine Leukocyte 3+ (Negative); Urine Nitrite Positive (Negative); Urine Occult Blood 1+ (Negative); Urine Urobilinogen Negative (Neg - 1+); Urine pH 6.5 (5.0-9.0)
[2024-12-22 11:58] LABS: % Basophils 0.3 % (0-2); % Eosinophils 0.8 % (0-6); % Immature Granulocytes 0.6 % (0-0.5); % Lymphocytes 22.3 % (20.5-51.1); % Monocytes 14.4 % (1.7-9.3); % Neutrophils 61.6 % (42.2-75.2); Absolute Eosinophils 0.1 10^3/uL (0-0.7); Absolute Lymphocytes 1.4 10^3/uL (1.2-3.4); Absolute Monocytes 0.9 10^3/uL (0.1-0.6); Absolute Neutrophils 3.9 10^3/uL (1.4-6.5); Hematocrit 40.1 % (37.0-47.0); Mean Corp Hgb Conc. 32.4 g/dL (33.0-37.0); Mean Corpuscular Hgb 32.3 pg (27.0-31.0); Mean Corpuscular Volume 99.5 fL (81.0-99.0); Nucleated Red Blood Cells % 0 %; Platelet Count 242 10^3/uL (130-400); Red Blood Cell Count 4.03 10^6/uL (4.20-5.40); Red Cell Dist. Width 12.8 % (11.5-14.5); White Blood Cell Count 6.4 10^3/uL (4.8-10.8)
[2024-12-22 12:00] VITALS: BP 107/66
[2024-12-22 12:02] LABS: Urine Bacteria Moderate (Negative); Urine Red Blood Cell 0-2 /HPF (0-2); Urine Squamous Cell 0-2 /LPF (Few); Urine White Cell 26-30 /HPF (0-5)
[2024-12-22 12:06] LABS: Blood Urea Nitrogen 18 mg/dl (7-17); Calcium 9.2 mg/dl (8.4-10.2); Carbon Dioxide 32 mmol/L (22-30); Chloride 95 mmol/L (98-107); Estimated Creatinine Clearance 80 ml/min; Glucose 92 mg/dl (70-99); Potassium 4.3 mmol/L (3.5-5.1); Sodium 137 mmol/L (135-145); eGFR > 60.00
--- NOTE | 2024-12-22 12:42 | CM ---
Addendum entered by Chika Sahu RN 12/22/24 14:34:
CM spoke with patient's daughter. She is agreeable to return home. CM will sent referral via [facility] to [facility]. Daughter plans to increase patient's SURGICAL ONCOLOGIST services. Patient lives at [facility] and will have supervision there.
Addendum entered by Chika Sahu RN 12/22/24 13:59:
ZAIRA left message for patient's daughter to discuss discharge planning.
Addendum entered by Chika Sahu RN 12/22/24 13:42:
Patient is not active with [facility]. She was discharged on 01/18/2024
Addendum entered by Chika Sahu RN 12/22/24 13:37:
Patient is not active with [facility].
Addendum entered by Chika Sahu RN 12/22/24 13:21:
ZAIRA spoke with patient. She stated that her friend, who lives in the apartment complex with her, Flores Hernandez [phone]. Flores stated that patient has been suffering from abdominal pain including diarrhea and constipation for two weeks.
Patient's PCP ordered stool samples but patient was not able to provide any successfully.
Flores stated that at time patient's daughter has been unreliable and had not been able to be reached to pick patient up from the hospital.
Patient has a SURGICAL ONCOLOGIST Moira from an unknown agency. [phone]. ZAIRA left message for patient's SURGICAL ONCOLOGIST for collateral information.
Original Note:
ZAIRA reviewed medical records. ZAIRA left message for patient's daughter to discuss discharge disposition
[2024-12-22 12:45] VITALS: BP 112/59
[2024-12-22 13:00] VITALS: BP 107/58
[2024-12-22 14:00] VITALS: BP 117/54
== END 2024-12-22 16:12 | disposition home or self-care (01) ==
LOC: EMR 10:51
PROVIDERS: EMERGENCY PHYSICIAN Emergency Medicine; FAMILY PHYSICIAN Internal Medicine
DX: F03.A0 Unspecified dementia, mild, without behavioral disturbance, psychotic disturbance, mood disturbance, and anxiety (principal); E78.00 Pure hypercholesterolemia, unspecified; E03.9 Hypothyroidism, unspecified; I48.91 Unspecified atrial fibrillation; M06.9 Rheumatoid arthritis, unspecified; Z90.49 Acquired absence of other specified parts of digestive tract; D68.51 Activated protein C resistance; G93.5 Compression of brain
CPT/HCPCS: 99284; 96360; 70450; 80048; 81003; 81015; 85025; 87086

== ENCOUNTER → 2024-12-31 10:04 | Outpatient (REF) | payer OTHER, SELFPAY | LOC: RAD 10:04 | PROVIDERS: ATTENDING PHYSICIAN Internal Medicine Rheumatology | DX: Z78.0 Asymptomatic menopausal state (principal); M81.0 Age-related osteoporosis without current pathological fracture | CPT/HCPCS: 77080 ==

== ENCOUNTER → 2025-02-25 07:37 | Outpatient (REF) | payer OTHER, SELFPAY | LOC: PAVMRI 07:37 | PROVIDERS: ATTENDING PHYSICIAN Psychiatry & Neurology Neurology; FAMILY PHYSICIAN Internal Medicine | DX: R41.0 Disorientation, unspecified (principal); W19.XXXD Unspecified fall, subsequent encounter | CPT/HCPCS: 70553; A9575 ==

== ENCOUNTER 2025-06-30 21:23 | Emergency (ER) | payer OTHER, SELFPAY ==
[2025-06-30 21:25] VITALS: BMI 28.1
[2025-06-30 21:27] VITALS: BP 110/59
[2025-06-30 21:44] LABS: Urine Character Slightly Cloudy (Clear)
[2025-06-30 22:00] VITALS: BP 114/66
[2025-06-30 22:21] LABS: Urine White Cell >100 /HPF (0-5)
--- NOTE | 2025-06-30 22:22 | ED.GENMED ---
History of Present Illness
General
Chief Complaint: Catheter/Tube Problem
Source: patient
Exam Limitations: none
Time Seen by Provider: 06/30/25 21:57
Nursing documentation reviewed up to this point in time: agreed with
History of Present Illness
History of Present Illness:
84-year-old female presents to the emergency department with clogged Auguste catheter. She states that upon arrival to the hospital, the Auguste spontaneously started flowing. Urine was sent and showed UTI. Patient given Monurol. Patient has no
complaints.
Past History
Past History
ED Past Medical History: Arrthythmia (Atrial fibrillation), Hypercholesterolemia, Seizures, Hypothyroidism, Psychiatric (Anxiety and depression), Other (Rheumatoid arthritis, Plaque psoriasis, osteoporosis, primary biliary cirrhosis diagnosed by
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
Leiden, restless leg syndrome)
ED Past Surgical History: Appendectomy, Brain (Craniotomy), Cholecystectomy, Gynecological (Oophorectomy), Orthopedic and Other (right eye laser surgery, cataract extraction 1999)
Social History
Tobacco: Non-smoker
Alcohol: None
Drug: None
Personal: Single
Living: assisted living
Employment: Retired
Family History
Family History: Other (Reviewed and Noncontributory)
Phy Exam
General Physical Exam
General Presentation: well appearing and no apparent distress
General age: appears stated age
General Skin: warm and dry
General Habitus: normal
General Mental: alert
General Hydration: appears well hydrated
General Chronic Disability: urinary catheter
ENT Exam
ENT Exam: EOMI and other (Mucous membranes moist)
Pulmonary Exam
Pulmonary Exam: no respiratory distress and no cough
Neurological Exam
Neurological Exam: alert and oriented x3
Musculoskeletal Exam
Musculoskeletal Exam: full ROM, no edema and neuro vasc intact
Skin Exam
Skin Exam: normal color and warm/dry
Psychiatric Exam
Psychiatric Exam: normal mood/affect
Course
Orders/Labs/Results
Orders:
Orders
06/30/25 21:38
Urinalysis Reflex To Culture Urgent
Date Specimen was Collected: 06/30/25
Time Specimen was Collected: 21:37
Comment: Auguste Catheter
Urine Microscopic Reflex Cult Urgent
Urine Culture Urgent
MILLY Source: U
Specimen Description:
Date Specimen was Collected: 06/30/25
Time Specimen was Collected: 21:37
06/30/25 22:20
Fosfomycin [Monurol] 3 gm PO ONCE ONE
Abnormal Lab Results
06/30/25
21:38
Ur Occult Blood Reflex 3+ A
(Negative)
Urine Nitrite (Reflex) Positive A
(Negative)
Leukocyte Esterase Rfl 3+ A
(Negative)
Urine WBC (Reflex) >100 A /HPF
(0-5)
Urine Bacteria (Reflex) Many A
(Negative)
Urine Albumin (Reflex) 1+ A
(Neg - Trace)
Vital Signs
Initial and Last Documented VS:
Initial Vital Signs
Temp Pulse Resp BP Pulse Ox
98.4 F 78 18 110/59 97
06/30/25 21:27 06/30/25 21:27 06/30/25 21:27 06/30/25 21:27 06/30/25 21:27
Last Documented Vital Signs
Temp Pulse Resp BP Pulse Ox
98.4 F 78 18 114/66 99
06/30/25 21:27 06/30/25 21:27 06/30/25 21:27 06/30/25 22:00 06/30/25 22:45
*Pulse Oximetry
SaO2: 97
Oxygen Mode of Delivery: Room air
Patient hypoxic: no
*Critical Care Note
Total Time (30-74mins, 75-104mins- exclusive of procedures): Not Applicable
ED Attending Note
-
Portions of this chart may have been created with voice recognition software.� Occasional wrong word or��sound alike� substitutions may have occurred due to the inherent limitations of voice recognition software.
Discharge Plan
Departure
Patient Disposition: Home (Routine Discharge)
Date of Disposition: 06/30/25
Time of Disposition: 22:52
Patient with high blood pressure during this ER visit?: No
Condition: Good
Discharge Problem:
Complication, blocked Auguste catheter, Acute UTI
Instructions: Urinary tract infections in adults, How to Care for Your Auguste Catheter
Prescriptions:
No Action
divalproex 500 MG tablet,delayed release (DR/EC)
500 mg PO BID
ursodiol 300 MG capsule
600 mg PO DAILY
levothyroxine 25 MCG tablet
25 mcg PO DAILY@0700
ursodiol 300 MG capsule
300 mg PO QPM
Centrum Silver 1 EACH tablet
1 ea PO DAILY
Lumigan 1 DROP drops
1 drp BOTH EYES HS
polyethylene glycol 3350 17 GRAMS powder in packet
17 grams PO DAILYPRN PRN (Reason: constipation)
metoprolol succinate 50 MG tablet extended release 24 hr
50 mg PO HS
lacosamide [Vimpat] 100 MG tablet
200 mg PO BID
Eliquis 5 MG tablet
5 mg PO BID Qty: 0 0RF
Rx Instructions:
RESUME WEDNESDAY 08/15
torsemide 10 mg Tablet
10 mg PO DAILY
docusate sodium 100 MG capsule
100 mg PO DAILY
gabapentin 300 MG capsule
300 mg PO HS
Enbrel 50 MG/ML syringe
50 mg SQ GASCA
benzonatate 200 mg capsule
200 mg PO TID PRN (Reason: Cough) Qty: 10 0RF
cefdinir 300 mg capsule
300 mg PO BID Qty: 14 0RF
cefdinir 300 mg capsule
300 mg PO BID 7 Days Qty: 14 0RF
Referrals:
Amy Elizabeth MD [Family Provider, Family Practice]
Activity Restrictions/Additional Instructions:
Thank You for choosing [facility].
It was a pleasure meeting you and taking part in your care. We hope for your continued healing and wellness.
Please read discharge instructions in their entirety. However, they are for general education and may not describe your exact diagnosis at discharge. Information on your ER visit and medical conditions were discussed with you along with appropriate
follow up information...
If indicated, please take your medications as instructed and indicated on discharge paperwork.
Please schedule a follow up appointment as directed. Call to schedule an appointment
Please return to the emergency department with ANY change in, persisting, or worsening of symptoms. If any of your symptoms do not improve, or persist, or become more severe within 6-12 hours, please return to the emergency department for further
care.
Please return to the emergency department if you develop a headache, neck pain/stiffness, fever greater than 100.4F, chest pain, shortness of breath, persistent nausea, vomiting, slurred speech, difficulty walking, numbness/tingling, weakness, signs
of infection or any other symptoms that are worrisome to you.
If you have any questions or concerns please do not hesitate to call the Hospital at or E-mail me directly at [email or web address]
Interventions
Interventions:
*Risk Screen - Suicide Last Done: 06/30/25 21:27
*General Assessment Last Done: 06/30/25 21:27
*Neglect/Abuse Screening Last Done: 06/30/25 21:27
*ED- Fall Risk Assessment Last Done: 06/30/25 21:27
*ED COVID-19 Vaccine History Last Done: 06/30/25 21:27
WT-Kledkx-Emchlkoqbp Assessment Last Done: 06/30/25 21:32
ED-Female Genitourinary Assessment Last Done: 06/30/25 21:32
Discharge Date and Time
Print Language: CHILEAN
[2025-06-30] MEDS: MONUROL 3 GM PO (22:30)
[2025-06-30 23:00] VITALS: BP 108/81
[2025-06-30 23:15] VITALS: BP 108/81
== END 2025-06-30 23:35 | disposition home or self-care (01) ==
LOC: EMR 21:23
PROVIDERS: Emergency Medicine; EMERGENCY PHYSICIAN Student in an Organized Health Care Education/Training Program; FAMILY PHYSICIAN Family Medicine
DX: T83.091A Other mechanical complication of indwelling urethral catheter, initial encounter (principal); X58.XXXA Exposure to other specified factors, initial encounter; N39.0 Urinary tract infection, site not specified; E03.9 Hypothyroidism, unspecified; E78.00 Pure hypercholesterolemia, unspecified; G25.81 Restless legs syndrome; H40.9 Unspecified glaucoma; I48.91 Unspecified atrial fibrillation; M06.9 Rheumatoid arthritis, unspecified
CPT/HCPCS: 99283; 81003; 81015; 87077; 87086

== ENCOUNTER → 2025-08-22 11:57 | Outpatient (REF) | payer OTHER, SELFPAY ==
[2025-08-22 14:00] LABS: INR 1.12; PT 14.7 Sec (11.4-14.6)
== END ==
LOC: REG 11:57
PROVIDERS: ATTENDING PHYSICIAN Family Medicine
DX: R79.9 Abnormal finding of blood chemistry, unspecified (principal); F01.A3 Vascular dementia, mild, with mood disturbance; F03.90 Unspecified dementia, unspecified severity, without behavioral disturbance, psychotic disturbance, mood disturbance, and anxiety; K74.3 Primary biliary cirrhosis; Z01.89 Encounter for other specified special examinations; Z79.899 Other long term (current) drug therapy; R53.83 Other fatigue; I48.19 Other persistent atrial fibrillation; D68.69 Other thrombophilia
CPT/HCPCS: 36415; 84425; 85610; 86618; 86780

== ENCOUNTER 2025-09-11 10:43 | Outpatient (RCR) | payer OTHER, SELFPAY | END 2025-09-11 23:59 | disposition home or self-care (01) | LOC: RST 10:43 | PROVIDERS: ATTENDING PHYSICIAN Psychiatry & Neurology Neurology; PRIMARYCARE PHYSICIAN Family Medicine | DX: F01.53 Vascular dementia, unspecified severity, with mood disturbance (principal); I69.211 Memory deficit following other nontraumatic intracranial hemorrhage; R41.841 Cognitive communication deficit; R41.89 Other symptoms and signs involving cognitive functions and awareness | CPT/HCPCS: 96125 ==

== ENCOUNTER → 2025-09-30 11:00 | Outpatient (REF) | payer OTHER, SELFPAY ==
[2025-09-30 12:23] LABS: Hematocrit 42.5 % (37.0-47.0); Hemoglobin 13.5 g/dL (12.0-16.0); Mean Corp Hgb Conc. 31.8 g/dL (33.0-37.0); Mean Corpuscular Volume 97.9 fL (81.0-99.0); Nucleated Red Blood Cells % 0 %; Platelet Count 226 10^3/uL (130-400); Red Cell Dist. Width 13.1 % (11.5-14.5)
[2025-09-30 12:51] LABS: ALT (SGPT) 25 U/L (0-35); AST (SGOT) 31 U/L (14-36); Albumin 4.5 g/dl (3.5-5.0); Alkaline Phosphatase 97 U/L (38-126); Blood Urea Nitrogen 24 mg/dl (7-17); Calcium 9.7 mg/dl (8.4-10.2); Chloride 93 mmol/L (98-107); Glucose 86 mg/dl (70-99); Iron 111 ug/dl (37-170); Potassium 4.6 mmol/L (3.5-5.1); Sodium 134 mmol/L (135-145); Total Protein 8.1 g/dl (6.3-8.2); eGFR > 60.00
[2025-09-30 12:59] LABS: Carbon Dioxide 34 mmol/L (22-30)
[2025-09-30 13:01] LABS: Total Iron Binding Capacity 350 ug/dl (265-497)
[2025-09-30 13:08] LABS: Vitamin D, 25-OH*** 44.8 ng/mL (30-80)
[2025-09-30 13:52] LABS: Glycohemoglobin (HgbA1c) 5.2 % (4.0-5.9)
[2025-09-30 13:53] LABS: CRP, Ultra Sensitive 3.99 mg/L (0.30-5.00)
[2025-09-30 13:58] LABS: Folate > 20.0 ng/ml (2.76-20); Vitamin B12 887 pg/ml (239-931)
[2025-10-02 13:32] LABS: Lyme Antibody Screen, EIA Negative (Negative)
== END ==
LOC: REG 11:00
PROVIDERS: ATTENDING PHYSICIAN Family Medicine; FAMILY PHYSICIAN Psychiatry & Neurology Neurology
DX: R79.9 Abnormal finding of blood chemistry, unspecified (principal); Z01.00 Encounter for examination of eyes and vision without abnormal findings; Z79.899 Other long term (current) drug therapy; R53.83 Other fatigue; F01.53 Vascular dementia, unspecified severity, with mood disturbance
CPT/HCPCS: 36415; 80053; 82306; 82607; 82652; 82746; 83036; 83540; 83550; 84425; 84443; 85025; 85652; 86141; 86618